=== PATIENT | male | born 1950 | race Caucasian/White ===

== ENCOUNTER 2018-01-03 06:31 | Day surgery (SDC) | payer OTHER ==
[2017-12-23 13:20] VITALS: BMI 22.8
[2018-01-03] MEDS ORDERED: TAMSULOSIN HCL 0.4 MG CAP.ER.24H (FP) ONE (07:10)
[2018-01-03] MEDS ORDERED: DEXAMETHASONE SOD PHOSPHATE/PF 10 MG/ML SDV ONE (07:28)
[2018-01-03] MEDS ORDERED: MIDAZOLAM HCL 2 MG/2 ML SINGLE DOSE VIAL ONE (07:28)
[2018-01-03] MEDS ORDERED: BUPIVACAINE HCL/PF (5 MG/ML) 30 ML VIAL IJ ONE (07:29)
[2018-01-03] MEDS ORDERED: PROPOFOL 20 ML ONE ×2 (07:45)
[2018-01-03] MEDS ORDERED: SUCCINYLCHOLINE CHLORIDE 200 MG/10 ML VIAL ONE (07:45)
[2018-01-03] MEDS ORDERED: ROCURONIUM BROMIDE 50 MG/5 ML VIAL ONE (07:45)
[2018-01-03] MEDS ORDERED: LIDOCAINE HCL 2% 100 MG/5 ML DISP.SYRIN ONE (08:15)
[2018-01-03] MEDS ORDERED: ONDANSETRON 4 MG/2 ML VIAL ONE ×2 (08:23→09:48)
[2018-01-03] MEDS ORDERED: DEXAMETHASONE SOD PHOSPHATE 4 MG/1 ML VIAL ONE (08:23)
[2018-01-03] MEDS ORDERED: ePHEDrine SULFATE 50 MG/1 ML AMPULE ONE (08:39)
[2018-01-03] MEDS ORDERED: NEOSTIGMINE METHYLSULFATE 0.5 MG/ML - 10 ML MDV ONE (08:52)
[2018-01-03] MEDS ORDERED: GLYCOPYRROLATE 0.2 MG/1 ML VIAL ONE (08:52)
[2018-01-03] MEDS ORDERED: oxyCODONE HCL 5 MG TABLET PO PRN ×2 (09:47)
[2018-01-03] MEDS ORDERED: ONDANSETRON 4 MG/2 ML VIAL IVPUSH PRN (09:47)
[2018-01-03] MEDS ORDERED: PROMETHAZINE HCL 25 MG/1 ML VIAL IVPB PRN (09:47)
--- NOTE | 2018-01-03 10:12 | OP ---
DATE OF OPERATION: 01/03/2018 PREOPERATIVE DIAGNOSIS: Bilateral inguinal hernias. POSTOPERATIVE DIAGNOSIS: Incarcerated right inguinal hernia (direct component), left indirect inguinal hernia. PROCEDURES: Laparoscopic repair of incarcerated right inguinal hernia with mesh, laparoscopic repair of left inguinal hernia with mesh. SURGEON: Jamshid Church MD CROWN CERAMIST: Kike Raphael MD ANESTHESIA: Aretha Sierra MD (general), ESTIMATED BLOOD LOSS: Minimal. SPECIMEN: None. INDICATIONS/PROCEDURE: This is a 67-year-old gentleman who has had progressive bulge and discomfort in the left groin region. He is noted to have bilateral inguinal hernias on physical examination and is now here for operative repair. Patient was identified and appropriately positioned on the operating room table. After placement of general anesthesia, the abdomen was prepped and draped in the usual sterile fashion with ChloraPrep. An infraumbilical incision was made deep into the subcutaneous tissues. The fascia of the rectus muscle on the right identified, divided sharply, the muscles split. Under direct vision, a dissector balloon followed by structural balloon placed. Also under direct vision, a suprapubic 11-mm port placed. The following structures on the right side identified, pubic tubercle, Coopers ligament, inferior epigastric vessels, spermatic cord, and lateral abdominal wall. During this dissection, patient had an incarcerated direct inguinal hernia containing fat and portion of bladder. This reduced back in the preperitoneal space with blunt dissection. He also had a small indirect inguinal hernia sac. On the right side, he had a pantaloon hernia incarcerated direct component. The indirect sac reduced. A 4.5 x 6 piece of Versatex mesh was keyhole placed through the suprapubic port site. The mesh wrapped around the cord structures laterally to reconstruct the internal ring. Laterally, the mesh anchored to the anterior abdominal wall and lateral abdominal wall. Medially the mesh anchored to the anterior abdominal wall, pubic tubercle, and Coopers ligament. Upon completion of the right side, similar structures on the left side identified. On the left side, no direct components identified. He had a large indirect inguinal hernia sac reduced back into the preperitoneal space with blunt and sharp dissection. Another 4.5 x 6 piece of Versatex mesh was keyhole placed through the suprapubic port site. The mesh wrapped around the cord structures laterally to reconstruct the internal ring. Laterally, the mesh anchored to the anterior abdominal wall and lateral abdominal wall. Medially, the mesh well overlapped in the midline, anchored to the anterior abdominal wall, pubic tubercle, and Coopers ligament. The preperitoneal space desufflated under direct vision. The operative field examined, noted to be hemostatic. Ports removed. Port sites hemostatic. The fascia at both port sites reapproximated with interrupted 0 Vicryl suture. All skin closed with 4-0 subcuticular Biosyn followed by Dermabond. At the conclusion of the case, sponge counts were correct. ATTESTATION: Brief operative note handwritten on the preprinted form. [place] DIRECTOR OF CASEWORK will be queried prior to giving any narcotics. Ector MICHEL [id number] cc: Dr. Rasheed Patterson, [address] [place] [address].
[2018-01-03] MEDS ORDERED: oxyCODONE HCL 5 MG TABLET ONE (10:27)
[2018-01-03 11:02] VITALS: TEMP 97.5
[2018-01-03 12:58] VITALS: BP 138/78; PULSE 64
--- NOTE | 2018-01-07 11:00 | HP ---
DATE OF SURGERY: 01/03/2018 REASON FOR ADMISSION: Bilateral inguinal hernias. BRIEF HISTORY: This is a 67-year-old gentleman who presented to the office in September of this year with complaints of having bilateral groin protrusion and progressive bulge especially in the left side. The patient also has discomfort in the left groin at times. He was evaluated and noted to have bilateral inguinal hernias and was recommended to undergo a laparoscopic repair. The patient was unable to schedule repair for several months due to his work issues. Therefore, I have asked that the gentleman return to the office to be re-evaluated at this time ( January 01, 2018). The patient has no new complaints at this time. He still states he had progressive bulge of both groins. This is a deep bulge that occurred approximately 3 years ago and has progressively enlarged. He was evaluated in the past and recommended not to have surgery. He denies nausea or vomiting. No change in bowel habits at this time. PAST MEDICAL HISTORY: No coronary disease, hypertension, or diabetes. PAST SURGICAL HISTORY: ACL repair in 2009 and tonsillectomy in 6. MEDICATIONS: Vitamins. ALLERGIES: PENICILLIN and SULFA. SOCIAL HISTORY: The patient does not smoke. He drinks socially. PHYSICAL EXAMINATION: Abdomen: Soft, nontender, and nondistended. He is examined in the erect position and placed through multiple Valsalva maneuvers. He has a large left inguinal hernia with encroachment into the left proximal scrotum. The hernia is reducible in the supine position. On the right side, he has a smaller hernia but also reducible. Genitourinary: Both testicles are within normal limits as well as the scrotum. IMPRESSION AND PLAN: Bilateral inguinal hernias, left greater than right. This is a 67-year-old gentleman becoming more symptomatic from an enlarging left inguinal hernia that he has had for a minimal of 2-1/2 to 3 years. At this point, I would recommend repairing both hernias laparoscopically, and at the time of surgery, mesh will be used. The patient, myself as well as his had a long conversation regarding the pros and cons of a mesh repair, and they have opted to proceed with such. He also understands due to the size of the hernia on the left, he is most likely to develop a postoperative seroma, which may or may not resolve. This was once again discussed with him, and he understands and wants to proceed. The indications, alternatives, and complications of the procedure were discussed and questions answered. We will plan to obtain written consent the day of surgery. Ector MICHEL [id number] cc: Dr. Chantel WHITTAKER
== END 2018-01-03 12:45 | disposition home or self-care (01) ==
LOC: FASU 06:31
PROVIDERS: ATTEND Surgery
PROC: 0YUA4JZ Supplement Bilateral Inguinal Region with Synthetic Substitute, Percutaneous Endoscopic Approach (ICD-10-PCS; principal; 2018-01-03 08:00)
DX: K40.30 Unilateral inguinal hernia, with obstruction, without gangrene, not specified as recurrent (principal); K40.91 Unilateral inguinal hernia, without obstruction or gangrene, recurrent
CPT/HCPCS: 94760